=== PATIENT | female | born 1940 | race Caucasian/White ===

== ENCOUNTER 2020-07-28 18:53 | Observation (INO) | payer MEDICARE, OTHER ==
--- NOTE | 2020-07-28 19:35 | EKG REPORT ---
SEVERITY:- ABNORMAL ECG - SINUS RHYTHM LEFT VENTRICULAR HYPERTROPHY : Confirmed by: Venancio Pierce MD 28-Jul-2020 19:33:56
[2020-07-28 20:14] LABS: ABSOLUTE BASOPHILS # (AUTO) 0.1 10^3/uL (0.0-0.2); ABSOLUTE EOSINOPHILS # (AUTO) 0.1 10^3/uL (0.0-0.6); ABSOLUTE LYMPHOCYTES (AUTO) 1.5 10^3/uL (0.5-4.7); ABSOLUTE MONOCYTES (AUTO) 0.3 10^3/uL (0.1-1.4); ABSOLUTE NEUT (AUTO) 3.2 10^3/uL (1.7-8.2); EOSINOPHILS % (AUTO) 1.7 % (0-6); HEMATOCRIT 37.1 % (36.0-47.0); HEMOGLOBIN 12.3 g/dL (12.0-15.5); LYMPHOCYTES % (AUTO) 29.2 % (13-45); MEAN CORPUSCULAR HGB CONC 33.3 g/dL (32.0-36.0); MEAN CORPUSCULAR VOLUME 81 fl (80-97); MONOCYTES % (AUTO) 5.4 % (3-13); PLATELET COUNT 116 10^3/uL (150-450); RED BLOOD COUNT 4.57 10^6/uL (3.72-5.28); RED CELL DISTRIBUTION WIDTH 15.2 % (11.5-14.0); SEGMENTED NEUTROPHILS % (AUTO) 62.7 % (42-78); TOTAL CELLS COUNTED % (AUTO) 100 %; WHITE BLOOD COUNT 5.1 10^3/uL (4.0-10.5)
--- NOTE | 2020-07-28 20:17 | RADIOLOGY REPORT (SQ) ---
EXAM DESCRIPTION: XR CHEST 1 VIEW COMPLETED DATE/TME: 07/28/2020 19:54 CLINICAL HISTORY: 80 years, Female, chest pain COMPARISON: None. NUMBER OF VIEWS: 1 TECHNIQUE: Portable AP upright view of the chest was obtained at 7:50 PM. LIMITATIONS: None. FINDINGS: The heart size is within normal limits for technique. There is either focal diaphragmatic eventration or small focal diaphragmatic hernia medial left lower chest. There is no airspace consolidation. Patient is status post coronary artery bypass graft surgery. There is no evidence of pleural effusion or pneumothorax. No definite acute bony abnormality is seen. IMPRESSION: No acute abnormality as above. copyright 2010 [employer]- All Rights Reserved
[2020-07-28 20:29] LABS: ALBUMIN 4.3 g/dL (3.5-5.0); ALKALINE PHOSPHATASE 96 U/L (38-126); ANION GAP 8 (5-19); ASPARTATE AMINO TRANSFERASE 18 U/L (14-36); BILIRUBIN,DIRECT 0.1 mg/dL (0.0-0.4); BILIRUBIN,TOTAL 0.3 mg/dL (0.2-1.3); BLOOD UREA NITROGEN 18 mg/dL (7-20); CALCIUM 10.4 mg/dL (8.4-10.2); CARBON DIOXIDE 24 mmol/L (22-30); CHLORIDE 107 mmol/L (98-107); CREATINE KINASE 59 U/L (30-135); GLUCOSE 157 mg/dL (75-110); TOTAL PROTEIN 7.2 g/dL (6.3-8.2)
[2020-07-28 20:39] LABS: CREATINE KINASE MB 1.15 ng/mL (<4.55)
[2020-07-28 20:43] LABS: TROPONIN I < 0.012 ng/mL
--- NOTE | 2020-07-28 22:27 | ER Document Report ---
Entered by MARISELA HINSON SCRIBE 07/28/201951 Acting as scribe for:KRYS THURSTON, DO ED General - General Chief Complaint: Chest Pain Stated Complaint: CHEST PAIN Time Seen by Provider: 07/28/20 19:42 Primary Care Provider: MIMI SINHA MD [Primary Care Provider] - Follow up as needed Information source: Patient Notes: This 80 year old female patient presents to the emergency department today with complaints of chest pain. Patient states at 5 pm she had sudden tightness to the center of her chest that did not radiate. Patient states she was laying on her b ed when this began. Patient was administered aspirin and a nitro drip by EMS, her pain lessened, and states she feels better now. Patient reports history of open heart surgery, [place], HTN, HLD, triple by-pass, and states she cannot remember when this occurred but it has been a while. Denies recent illness, cough, or covid exposure. - Related Data Allergies/Adverse Reactions: Sulfa (Sulfonamide Antibiotics) Allergy (Verified 07/28/20 21:22) Past Medical History - General Information source: Patient - Social History Smoking Status: Unknown if Ever Smoked Lives with: Family Family History: Reviewed & Not Pertinent - Past Medical History Cardiac Medical History: Reports: Hx Heart Attack, Hx Hypercholesterolemia, Hx Hypertension Psychiatric Medical History: Reports: Hx Depression Past Surgical History: Reports: Hx Appendectomy, Hx Cholecystectomy, Hx Hysterectomy, Hx Open Heart Surgery Review of Systems - Review of Systems Constitutional: See HPI. denies: Recent illness EENT: No symptoms reported Cardiovascular: See HPI, Chest pain Respiratory: See HPI. denies: Cough Gastrointestinal: No symptoms reported Genitourinary: No symptoms reported Female Genitourinary: No symptoms reported Musculoskeletal: No symptoms reported Skin: No symptoms reported Hematologic/Lymphatic: No symptoms reported Neurological/Psychological: No symptoms reported -: Yes All other systems reviewed and negative Physical Exam - Vital signs Vitals: Temp 98.3 F 07/28/20 18:53 - General Notes: Alert. Frail and elderly appearance. - HEENT Head: Normocephalic, Atraumatic Eyes: Normal Pupils: PERRL - Respiratory Respiratory status: No respiratory distress Chest status: Nontender Breath sounds: Normal Chest palpation: Normal Notes: Midline scar to the anterior chest. - Cardiovascular Rhythm: Regular Heart sounds: Normal auscultation Murmur: No - Abdominal Inspection: Obese, Other - soft Distension: No distension Bowel sounds: Normal Tenderness: Nontender - Extremities General upper extremity: Normal inspection, Normal ROM General lower extremity: Normal inspection, Normal ROM. No: Edema - Neurological Neuro grossly intact: Yes Cognition: Normal Orientation: AAOx4 [place] Coma Scale Eye Opening: Spontaneous [place] Coma Scale Verbal: Oriented [place] Coma Scale Motor: Obeys Commands [place] Coma Scale Total: 15 Speech: Normal Motor strength normal: LUE, RUE, LLE, RLE Sensory: Normal - Psychological Associated symptoms: Normal affect, Normal mood - Skin Skin Temperature: Warm Skin Moisture: Dry Skin Color: Normal Course - Re-evaluation Re-evalutation: 07/28/20 22:15 MDM 80 year old female is a difficult historian and experienced chest pain at home earlier accompanied by accelerated htn. She is taking no medicine though she is supposed to be. She has had a CABG previously at [facility] and was taking htn medicine but not taking at this time. She was administered aspirin - 325 mg by EMS and then ntg - sublingal which helped and then a ntg gtt was initiated. She was painfree when she arrived here and sbp 140 upon arrival. Her SBP was 210 at home. She remains pain free here. I have discussed the pt with Dr. Quiroga and he has graciously agreed to see and evaluate for admission. - Vital Signs Vital signs: Temp Pulse Resp BP Pulse Ox 98.3 F 14 126/49 H 98 07/28/20 18:53 07/28/20 21:16 07/28/20 21:16 07/28/20 21:16 - Laboratory Result Diagrams: 07/28/20 18:56 07/28/20 18:56 Laboratory results interpreted by me: 07/28/20 07/28/20 18:56 18:56 RDW 15.2 H Plt Count 116 L Est GFR (MDRD) Non-Af 56 L Glucose 157 H Calcium 10.4 H Discharge - Discharge Clinical Impression: Chest pain at rest Hypertension Qualifiers: Hypertension type: unspecified Qualified Code(s): I10 - Essential (primary) hypertension Condition: Stable Disposition: ADMITTED OBSERVATION Admitting Provider: Junaid (Hospitalist) Unit Admitted: Telemetry Referrals: MIMI SINHA MD [Primary Care Provider] - Follow up as needed I personally performed the services described in the documentation, reviewed and edited the documentation which was dictated to the scribe in my presence, and it accurately records my words and actions.
[2020-07-28] MEDS ORDERED: MAG HYDROX/AL HYDROX/SIMETH SUSP 30 ML UDCUP PO PRN (22:47)
[2020-07-28] MEDS ORDERED: ONDANSETRON HCL INJ/PF 4 MG/2 ML SDV IV PRN (22:47)
[2020-07-28] MEDS ORDERED: ACETAMINOPHEN 325 MG TABLET PO PRN (22:47)
[2020-07-28] MEDS ORDERED: NITROGLYCERIN 0.4 MG/TAB 25 TAB/BOTTLE SL PRN (22:51)
[2020-07-28] MEDS ORDERED: CHLORTHALIDONE 25 MG TABLET PO SCH (23:00)
[2020-07-28] MEDS ORDERED: LOSARTAN POTASSIUM 50 MG TABLET PO ONE (23:00)
--- NOTE | 2020-07-28 23:10 | PDOC H&P ---
History of Present Illness Admission Date/PCP: 07/28/20 22:58 MIMI SINHA MD Patient complains of: Chest pain History of Present Illness: RISHI ROMO is a 80 year old female with history of hypertension, CAD S/P CABG [[facility] dementia, depression, who presents to the hospital via EMS for evaluation of acute onset chest pain. Patient's chest pain began today. She described it like a pressure and tightness. Patient herself is a poor historian. She did inform her daughter and her daughter subsequently called EMS. Patient endorsed having some shortness of breath at the time. Currently patient still notes mild heaviness in the chest but mostly resolved. Of note, patient has not been on any medications for the past several months including h er blood pressure medications. The daughter does not know what blood pressure medicationS she was previously on. On arrival of the EMS, her blood pressure was noted to be 220/76. She was given some nitro and subsequently placed on a nitro drip. On arrival at the ER, patient's nitro drip was discontinued as her blood pressure had normalized. Past Medical History Cardiac Medical History: Reports: Myocardial Infarction, Hyperlipidema, Hypertension Psychiatric Medical History: Reports: Depression Past Surgical History Past Surgical History: Reports: Appendectomy, Cholecystectomy, Hysterectomy, Orthopedic Surgery - L femor, R big toe Social History Lives with: Family Smoking Status: Unknown if Ever Smoked Electronic Cigarette use?: No Frequency of Alcohol Use: None Hx Recreational Drug Use: No - Advance Directive Resuscitation Status: Full Code Surrogate healthcare decision maker:: Amaya Family History Family History: Hypertension Parental Family History Reviewed: Yes Children Family History Reviewed: Yes Sibling(s) Family History Reviewed.: Yes Medication/Allergy Allergies/Adverse Reactions: Sulfa (Sulfonamide Antibiotics) Allergy (Verified 07/28/20 21:22) Review of Systems Constitutional: ABSENT: chills, fever(s), weakness Eyes: ABSENT: visual disturbances Nose, Mouth, and Throat: ABSENT: headache(s), sore throat Cardiovascular: PRESENT: chest pain Respiratory: ABSENT: cough Gastrointestinal: ABSENT: abdominal pain, nausea, vomiting Genitourinary: ABSENT: difficulty urinating, dysuria Musculoskeletal: ABSENT: back pain Integumentary: ABSENT: diaphoresis Neurological: ABSENT: dizziness Psychiatric: PRESENT: depression - Daughter reports history of depression. ABSENT: anxiety Endocrine: ABSENT: polyuria Hematologic/Lymphatic: ABSENT: easy bleeding Physical Exam Vital Signs: Temp Pulse Resp BP Pulse Ox 98.3 F 16 138/55 H 99 07/28/20 18:53 07/28/20 22:01 07/28/20 22:01 07/28/20 22:01 Intake & Output 07/27/20 07/28/20 07/29/20 06:59 06:59 06:59 Weight 63.6 kg General appearance: PRESENT: no acute distress, cooperative Head exam: PRESENT: normocephalic Mouth exam: ABSENT: neck supple Neck exam: ABSENT: JVD Respiratory exam: PRESENT: clear to auscultation claude, symmetrical, unlabored. ABSENT: tachypnea, wheezes Cardiovascular exam: PRESENT: diastolic murmur, RRR, +S1, +S2. ABSENT: systolic murmur, tachycardia GI/Abdominal exam: PRESENT: soft. ABSENT: rebound, rigid, tenderness Extremities exam: ABSENT: calf tenderness, pedal edema Neurological exam: PRESENT: alert, awake, oriented to person, oriented to place. ABSENT: oriented to situation Psychiatric exam: ABSENT: agitated, anxious Focused psych exam: ABSENT: pressured speech Results Laboratory Results: 07/28/20 18:56 07/28/20 18:56 07/28/20 07/28/20 18:56 18:56 WBC 5.1 RBC 4.57 Hgb 12.3 Hct 37.1 MCV 81 MCH 27.0 MCHC 33.3 RDW 15.2 H Plt Count 116 L Seg Neutrophils % 62.7 Sodium 138.9 Potassium 4.0 Chloride 107 Carbon Dioxide 24 Anion Gap 8 BUN 18 Creatinine 0.96 Est GFR ( Amer) > 60 Glucose 157 H Calcium 10.4 H Total Bilirubin 0.3 AST 18 Alkaline Phosphatase 96 Total Protein 7.2 Albumin 4.3 07/28/20 07/28/20 07/28/20 18:56 18:56 22:15 Creatine Kinase 59 CK-MB (CK-2) 1.15 Troponin I < 0.012 < 0.012 Impressions: Chest X-Ray 07/28/20 19:18 IMPRESSION: No acute abnormality as above. copyright 2010 [email or web address]- All Rights Reserved Assessment and Plan - Diagnosis (1) Hypertensive emergency Is this a current diagnosis for this admission?: Yes Plan: Secondary to noncompliance with antihypertensive regimen. Patient initially hypertensive emergency as characterized by severe hypertension with chest pain and dyspnea. Currently off the nitroglycerin drip As she has not been as any antihypertensives for several months over a year now and no one knows her prior BP meds, I will go ahead and start her on losartan and chlorthalidone right away. Admitted for observation. (2) Chest pain at rest Is this a current diagnosis for this admission?: Yes Plan: Due to malignant hypertension. Chest pain has currently resolved mostly down to 09/07. Troponin is negative x2. Monitor on telemetry Nitroglycerin as needed Optimize blood pressure. (3) CAD (coronary artery disease) Is this a current diagnosis for this admission?: Yes Plan: Has history of [place] with CABG in 2016. Not on any medications and has not seen any doctor in quite some time now. We will start her on a baby aspirin. Check lipid panel. (4) Hyperglycemia Is this a current diagnosis for this admission?: Yes Plan: Denies history of diabetes. Check hemoglobin A1c. - Time Time Spent with patient: 35 or more minutes Anticipated Discharge Disposition: Home, Self Care Anticipated Discharge Timeframe: within 24 hours
--- NOTE | 2020-07-28 23:13 | ADVANCED CARE ---
- Diagnosis (1) Hypertensive emergency Diagnosis Current: Yes (2) Chest pain at rest Diagnosis Current: Yes (3) CAD (coronary artery disease) Diagnosis Current: Yes Resuscitation Status: Full Code Discussion: I discussed with patient's daughter Amaya is patient's next of kin and lives with patient. Patient has history of dementia. Patient's daughter informs me that she would like her to be a full CODE STATUS but does not want prolonged code as she does not want her to be resuscitated as a 'vegetable'. After elaborate discussion and explanation, she did state that she does not want CPR past 8 minutes if no ROSC is achieved. Otherwise wants full treatment as deemed necessary. Time Spent: 17mins
[2020-07-29] MEDS ORDERED: CHLORTHALIDONE 25 MG TABLET PO ONE (02:20)
[2020-07-29] MEDS ORDERED: CLONIDINE HCL 0.1 MG TABLET PO ONE (02:54)
[2020-07-29 07:26] LABS: ANION GAP 9 (5-19); BLOOD UREA NITROGEN 17 mg/dL (7-20); CALCIUM 9.9 mg/dL (8.4-10.2); CARBON DIOXIDE 21 mmol/L (22-30); CHLORIDE 109 mmol/L (98-107); GLUCOSE 151 mg/dL (75-110); POTASSIUM 4.1 mmol/L (3.6-5.0); TRIGLYCERIDES 155 mg/dL (<150)
[2020-07-29 07:38] LABS: DIRECT LDL 143 mg/dL (<100)
--- NOTE | 2020-07-29 09:17 | EKG REPORT ---
SEVERITY:- ABNORMAL ECG - SINUS BRADYCARDIA LEFT VENTRICULAR HYPERTROPHY : Confirmed by: Venancio Pierce MD 29-Jul-2020 09:17:10
[2020-07-29] MEDS ORDERED: CHLORTHALIDONE 25 MG TABLET PO SCH (10:00)
[2020-07-29] MEDS: ASPIRIN 81 MG TABLET, ENT COATED PO SCH (10:54)
[2020-07-29] MEDS: ENOXAPARIN SODIUM INJ 40 MG/0.4 ML DISP.SYRIN SUBCUT SCH (10:55)
[2020-07-29] MEDS: LOSARTAN POTASSIUM 50 MG TABLET PO SCH (10:55)
[2020-07-29] MEDS: CHLORTHALIDONE 25 MG TABLET PO SCH (11:00)
--- NOTE | 2020-07-29 20:46 | RADIOLOGY REPORT (SQ) ---
EXAM DESCRIPTION: CTA CHEST CLINICAL HISTORY: 80 years Female; chest pain TECHNIQUE: CT angiogram of the chest using intravenous contrast.. MIP reconstructions were performed. All CT scans at this facility use dose modulation, iterative reconstruction, and/or weight based dosing when appropriate to reduce radiation dose to as low as reasonably achievable. COMPARISON: None. FINDINGS: Chest: Vascular: Exam is of diagnostic quality. There is no evidence of pulmonary artery embolization. Scattered vascular plaque is present in the aorta. No aneurysm. There is postoperative change of sternotomy and CABG. No dissection. Lungs: Lungs are clear. No focal consolidation. No pneumothorax or pleural effusion. In the posterior aspect of the left upper lobe along the fissure is a 4 mm pulmonary nodule. There is a smaller adjacent 2 mm nodule. A 2 mm nodules present in the right upper lobe and there are scattered very small pulmonary nodules seen throughout the lungs bilaterally. Mediastinum: Mild four-chamber cardiac enlargement. Coronary artery calcifications. No significant mediastinal or hilar lymphadenopathy. Bones and soft tissues: Compression fractures noted at T10 with 70% loss of height of the vertebral body. Age unknown. There is degenerative endplate changes with vacuum disc and sclerosis at T12-L1. The sternum is healed. Upper Abdomen: Prominence of the common bile duct is identified which measures 16 mm. The etiology is unknown. IMPRESSION: 1. No pulmonary artery embolization. 2. Multiple small bilateral pulmonary nodules which measure up to 4 mm. No follow-up is indicated. 3. No acute process in the chest. 4. Biliary dilatation of uncertain etiology.
[2020-07-29] MEDS ORDERED: ATORVASTATIN CALCIUM 40 MG TABLET PO SCH (22:00)
[2020-07-30] MEDS ORDERED: CHLORTHALIDONE 25 MG TABLET PO SCH (08:00)
[2020-07-30] MEDS: CHLORTHALIDONE 25 MG TABLET PO SCH (08:55)
[2020-07-30] MEDS: LOSARTAN POTASSIUM 50 MG TABLET PO SCH (10:14)
[2020-07-30] MEDS: ENOXAPARIN SODIUM INJ 40 MG/0.4 ML DISP.SYRIN SUBCUT SCH (10:17)
[2020-07-30] MEDS: ASPIRIN 81 MG TABLET, ENT COATED PO SCH (10:17)
[2020-07-30 11:30] VITALS: BP 125/44
--- NOTE | 2020-07-31 19:59 | PDOC PROGRESS REPORT ---
Subjective Date:: 07/29/20 Subjective:: Patient was seen and examined at bedside. minimal chest pain no SOB. BP was down to 130/80. No new complains Reason For Visit: HTN EMERGENCY,CHEST PAIN Physical Exam Vital Signs: Temp Pulse Resp BP Pulse Ox 97.8 F 62 17 125/44 L 100 07/30/20 12:33 07/30/20 12:33 07/30/20 12:33 07/30/20 12:33 07/30/20 12:33 Intake & Output 07/30/20 07/31/20 08/01/20 06:59 06:59 06:59 Intake Total 580 120 Balance 580 120 Weight 65 kg General appearance: PRESENT: no acute distress, cooperative Head exam: PRESENT: atraumatic, normocephalic Eye exam: PRESENT: EOMI, PERRLA Mouth exam: PRESENT: moist Neck exam: PRESENT: full ROM Respiratory exam: PRESENT: clear to auscultation claude, symmetrical, unlabored Cardiovascular exam: PRESENT: RRR, +S1, +S2 Pulses: PRESENT: +2 pedal pulses bilateral GI/Abdominal exam: PRESENT: normal bowel sounds, soft. ABSENT: rebound, tenderness Extremities exam: PRESENT: full ROM Musculoskeletal exam: PRESENT: full ROM Neurological exam: PRESENT: alert, awake, oriented to person, oriented to place, oriented to time, oriented to situation Psychiatric exam: PRESENT: normal mood Skin exam: PRESENT: normal color Results Laboratory Results: 07/28/20 18:56 07/29/20 06:18 07/28/20 07/28/20 07/28/20 18:56 18:56 22:15 Creatine Kinase 59 CK-MB (CK-2) 1.15 Troponin I < 0.012 < 0.012 Impressions: Chest X-Ray 07/28/20 19:18 IMPRESSION: No acute abnormality as above. copyright 2010 [employer]- All Rights Reserved Chest/Abdomen CTA 07/29/20 00:00 IMPRESSION: 1. No pulmonary artery embolization. 2. Multiple small bilateral pulmonary nodules which measure up to 4 mm. No follow-up is indicated. 3. No acute process in the chest. 4. Biliary dilatation of uncertain etiology. Assessment and Plan - Diagnosis (1) CAD (coronary artery disease) Qualifiers: Coronary Disease-Associated Artery/Lesion type: bypass graft Associated ang tamie: with stable angina Is this a current diagnosis for this admission?: Yes Plan: Has history of [place] with CABG in 2016. Not on any medications and has not seen any doctor in quite some time now. We will start her on a baby aspirin. - lipid panel with elevated LDL and total annie - started on aspirin, metoprolol and ARB (2) Chest pain at rest Is this a current diagnosis for this admission?: Yes Plan: Due to malignant hypertension. Chest pain has currently resolved mostly down to 1/5. Troponin is negative x2. Monitor on telemetry Nitroglycerin as needed Optimize blood pressure. (3) Hyperglycemia Is this a current diagnosis for this admission?: Yes Plan: Denies history of diabetes. Check hemoglobin A1c. (4) Hypertension Qualifiers: Hypertension type: unspecified Qualified Code(s): I10 - Essential (primary) hypertension Is this a current diagnosis for this admission?: Yes Plan: - was not on any meds prior to admission - started on losartan, chlorthalidone (5) Hypertensive emergency Is this a current diagnosis for this admission?: Yes Plan: Secondary to noncompliance with antihypertensive regimen. Patient initially hypertensive emergency as characterized by severe hypertension with chest pain and dyspnea. Currently off the nitroglycerin drip As she has not been as any antihypertensives for several months over a year now and no one knows her prior BP meds, I will go ahead and start her on losartan and chlorthalidone right away. - Time Time Spent with patient: 25-34 minutes Medications reviewed and adjusted accordingly: Yes Anticipated Discharge Disposition: Home, Self Care Anticipated Discharge Timeframe: within 48 hours
--- NOTE | 2020-07-31 20:01 | PDOC DISCHARGE SUMMARY ---
Impression - Admit/DC Date/PCP Admission Date/Primary Care Provider: 07/28/20 22:58 MIMI SINHA MD Discharge Date: 07/30/20 - Discharge Diagnosis (1) CAD (coronary artery disease) Is this a current diagnosis for this admission?: Yes (2) Chest pain at rest Is this a current diagnosis for this admission?: Yes (3) Hyperglycemia Is this a current diagnosis for this admission?: Yes (4) Hypertension Is this a current diagnosis for this admission?: Yes (5) Hypertensive emergency Is this a current diagnosis for this admission?: Yes - Additional Information Resuscitation Status: Full Code Discharge Diet: Cardiac Discharge Activity: Activity As Tolerated Referrals: MIMI SINHA MD [Primary Care Provider] - Follow up as needed (PATIENT WILL HAVE TO MAKE OWN APPT.) Prescriptions: Losartan Potassium [Cozaar 50 mg Tablet] 50 mg PO DAILY 60 Days #60 tablet Aspirin [Ecotrin 81 mg EC Tablet] 81 mg PO DAILY 60 Days #60 tabec Chlorthalidone [Hygroton 25 mg Tablet] 25 mg PO QAM 30 Days #30 tablet Atorvastatin Calcium [Lipitor 40 mg Tablet] 40 mg PO QHS 60 Days #60 tablet Nitroglycerin [Nitrostat 0.4 mg (1/150 Gr) Tabs 25/Bottle] 1 tab SL Q5MP PRN 30 Days #10 bottle PRN Reason: Pantoprazole Sodium [Protonix [address] Tablet] 40 mg PO NOW 30 Days #30 tablet. Home Medications: Aspirin [Ecotrin 81 mg EC Tablet] 81 mg PO DAILY 60 Days #60 tabec 07/30/20 Atorvastatin Calcium [Lipitor 40 mg Tablet] 40 mg PO QHS 60 Days #60 tablet 07/30/20 Chlorthalidone [Hygroton 25 mg Tablet] 25 mg PO QAM 30 Days #30 tablet 07/30/20 Losartan Potassium [Cozaar 50 mg Tablet] 50 mg PO DAILY 60 Days #60 tablet 07/30/20 Nitroglycerin [Nitrostat 0.4 mg (1/150 Gr) Tabs 25/Bottle] 1 tab SL Q5MP PRN 30 Days #10 bottle 07/30/20 Pantoprazole Sodium [Protonix [address] Tablet] 40 mg PO NOW 30 Days #30 tablet. 07/30/20 History of Present Illiness History of Present Illness: RISHI ROMO is a 80 year old female with history of hypertension, CAD S/P CABG [2016 [facility]], dementia, depression, who presents to the hospital via EMS for e valuation of acute onset chest pain. Patient's chest pain began today. She described it like a pressure and tightness. Patient herself is a poor historian. She did inform her daughter and her daughter subsequently called EMS. Patient endorsed having some shortness of breath at the time. Currently patient still notes mild heaviness in the chest but mostly resolved. Of note, patient has not been on any medications for the past several months including her blood pressure medications. The daughter does not know what blood pressure medicationS she was previously on. On arrival of the EMS, her blood pressure was noted to be 220/76. She was given some nitro and subsequently placed on a nitro drip. On arrival at the ER, patient's nitro drip was discontinued as her blood pressure had normalized. Hospital Course Hospital Course: On the second hospital day her blood pressure went down to 130s over 50s and her chest pain has significantly lessened. Troponin was negative x2. On the third hospital day her chest pain has completely resolved, CTA chest was done to rule out pulmonary embolism and her T CTA chest was negative with no aortic dissection as well. TSH was normal. She was discharged on blood pressure medications and aspirin and was advised to follow-up with her primary care physician. Physical Exam Vital Signs: Temp Pulse Resp BP Pulse Ox 97.8 F 62 17 125/44 L 100 07/30/20 12:33 07/30/20 12:33 07/30/20 12:33 07/30/20 12:33 07/30/20 12:33 Intake & Output 07/30/20 07/31/20 08/01/20 06:59 06:59 06:59 Intake Total 580 120 Balance 580 120 Weight 65 kg General appearance: PRESENT: no acute distress, cooperative Head exam: PRESENT: atraumatic, normocephalic Eye exam: PRESENT: EOMI, PERRLA Mouth exam: PRESENT: moist Neck exam: PRESENT: full ROM Respiratory exam: PRESENT: clear to auscultation claude, symmetrical, unlabored Cardiovascular exam: PRESENT: RRR, +S1, +S2 GI/Abdominal exam: PRESENT: normal bowel sounds, soft. ABSENT: rebound, tenderness Extremities exam: PRESENT: full ROM Musculoskeletal exam: PRESENT: full ROM Neurological exam: PRESENT: alert, awake, oriented to person, oriented to place, oriented to time, oriented to situation Psychiatric exam: PRESENT: normal mood Skin exam: PRESENT: normal color Results Laboratory Results: WBC 5.1 10^3/uL (4.0-10.5) 07/28/20 18:56 RBC 4.57 10^6/uL (3.72-5.28) 07/28/20 18:56 Hgb 12.3 g/dL (12.0-15.5) 07/28/20 18:56 Hct 37.1 % (36.0-47.0) 07/28/20 18:56 MCV 81 fl (80-97) 07/28/20 18:56 MCH 27.0 pg (27.0-33.4) 07/28/20 18:56 MCHC 33.3 g/dL (32.0-36.0) 07/28/20 18:56 RDW 15.2 % (11.5-14.0) H 07/28/20 18:56 Plt Count 116 10^3/uL (150-450) L 07/28/20 18:56 Lymph % (Auto) 29.2 % (13-45) 07/28/20 18:56 [place] % (Auto) 5.4 % (3-13) 07/28/20 18:56 Eos % (Auto) 1.7 % (0-6) 07/28/20 18:56 Baso % (Auto) 1.0 % (0-2) 07/28/20 18:56 Absolute Neuts (auto) 3.2 10^3/uL (1.7-8.2) 07/28/20 18:56 Absolute Lymphs (auto) 1.5 10^3/uL (0.5-4.7) 07/28/20 18:56 Absolute Monos (auto) 0.3 10^3/uL (0.1-1.4) 07/28/20 18:56 Absolute Eos (auto) 0.1 10^3/uL (0.0-0.6) 07/28/20 18:56 Absolute Basos (auto) 0.1 10^3/uL (0.0-0.2) 07/28/20 18:56 Seg Neutrophils % 62.7 % (42-78) 07/28/20 18:56 Sodium 138.7 mmol/L (137-145) 07/29/20 06:18 Potassium 4.1 mmol/L (3.6-5.0) 07/29/20 06:18 Chloride 109 mmol/L (98-107) H 07/29/20 06:18 Carbon Dioxide 21 mmol/L (22-30) L 07/29/20 06:18 Anion Gap 9 (5-19) 07/29/20 06:18 BUN 17 mg/dL (7-20) 07/29/20 06:18 Creatinine 0.88 mg/dL (0.52-1.25) 07/29/20 06:18 Est GFR ( Amer) > 60 (>60) 07/29/20 06:18 Est GFR (MDRD) Non-Af > 60 (>60) 07/29/20 06:18 Glucose 151 mg/dL (75-110) H 07/29/20 06:18 Hemoglobin A1c % 6.7 % (4.7-6.0) H 07/29/20 06:18 Calcium 9.9 mg/dL (8.4-10.2) 07/29/20 06:18 Total Bilirubin 0.3 mg/dL (0.2-1.3) 07/28/20 18:56 Direct Bilirubin 0.1 mg/dL (0.0-0.4) 07/28/20 18:56 Neonat Total Bilirubin Not Reportable 07/28/20 18:56 Neonat Direct Bilirubin Not Reportable 07/28/20 18:56 Neonat Indirect Bili Not Reportable 07/28/20 18:56 AST 18 U/L (14-36) 07/28/20 18:56 ALT 11 U/L (<35) 07/28/20 18:56 Alkaline Phosphatase 96 U/L (38-126) 07/28/20 18:56 Creatine Kinase 59 U/L (30-135) 07/28/20 18:56 CK-MB (CK-2) 1.15 ng/mL (<4.55) 07/28/20 18:56 Troponin I < 0.012 ng/mL 07/28/20 22:15 Total Protein 7.2 g/dL (6.3-8.2) 07/28/20 18:56 Albumin 4.3 g/dL (3.5-5.0) 07/28/20 18:56 Triglycerides 155 mg/dL (<150) H 07/29/20 06:18 Cholesterol 194.40 mg/dL (0-200) 07/29/20 06:18 LDL Cholesterol Direct 143 mg/dL (<100) H 07/29/20 06:18 VLDL Cholesterol 31.0 mg/dL (10-31) 07/29/20 06:18 HDL Cholesterol 42 mg/dL (>40) 07/29/20 06:18 TSH 6.19 uIU/mL (0.47-4.68) H 07/29/20 06:18 07/28/20 07/28/20 18:56 22:15 CK-MB (CK-2) 1.15 Troponin I < 0.012 < 0.012 Impressions: Chest X-Ray 07/28/20 19:18 IMPRESSION: No acute abnormality as above. copyright [address]- All Rights Reserved Chest/Abdomen CTA 07/29/20 00:00 IMPRESSION: 1. No pulmonary artery embolization. 2. Multiple small bilateral pulmonary nodules which measure up to 4 mm. No follow-up is indicated. 3. No acute process in the chest. 4. Biliary dilatation of uncertain etiology. Stroke Is this a Stroke Patient?: No Acute Heart Failure Is this a Heart Failure Patient?: No
== END 2020-07-30 14:03 | disposition home or self-care (01) ==
LOC: ER 18:53 → EH 22:58 → 4S 23:25
PROVIDERS: ADMIT Internal Medicine; ATTEND Internal Medicine
DX: I16.1 Hypertensive emergency (principal); R07.89 Other chest pain; I25.709 Atherosclerosis of coronary artery bypass graft(s), unspecified, with unspecified angina pectoris; F03.90 Unspecified dementia, unspecified severity, without behavioral disturbance, psychotic disturbance, mood disturbance, and anxiety; Z91.14 Patient's other noncompliance with medication regimen; R73.9 Hyperglycemia, unspecified; E66.9 Obesity, unspecified; I25.2 Old myocardial infarction; E78.5 Hyperlipidemia, unspecified; Z95.1 Presence of aortocoronary bypass graft; Z82.49 Family history of ischemic heart disease and other diseases of the circulatory system
CPT/HCPCS: 93005 ×2; 99285; 36415 ×2; 82553; 82550; 84443; 85025; 80048; 80053; 84484; 83036; 80061; 71045; 71275; 93010 ×2; G0378 ×3; A9270 ×8; J1650; J3490 ×2

== ENCOUNTER 2020-08-02 18:27 | Emergency (ER) | payer MEDICARE ==
[2020-08-02 19:06] LABS: ABSOLUTE BASOPHILS # (AUTO) 0.1 10^3/uL (0.0-0.2); ABSOLUTE EOSINOPHILS # (AUTO) 0.1 10^3/uL (0.0-0.6); ABSOLUTE LYMPHOCYTES (AUTO) 1.2 10^3/uL (0.5-4.7); ABSOLUTE MONOCYTES (AUTO) 0.4 10^3/uL (0.1-1.4); ABSOLUTE NEUT (AUTO) 8.2 10^3/uL (1.7-8.2); BASOPHILS % (AUTO) 0.6 % (0-2); EOSINOPHILS % (AUTO) 0.6 % (0-6); HEMATOCRIT 37.9 % (36.0-47.0); HEMOGLOBIN 12.7 g/dL (12.0-15.5); LYMPHOCYTES % (AUTO) 11.7 % (13-45); MEAN CORPUSCULAR HEMOGLOBIN 27.5 pg (27.0-33.4); MEAN CORPUSCULAR HGB CONC 33.5 g/dL (32.0-36.0); MEAN CORPUSCULAR VOLUME 82 fl (80-97); MONOCYTES % (AUTO) 4.1 % (3-13); PLATELET COUNT 128 10^3/uL (150-450); RED BLOOD COUNT 4.62 10^6/uL (3.72-5.28); RED CELL DISTRIBUTION WIDTH 15.3 % (11.5-14.0); TOTAL CELLS COUNTED % (AUTO) 100 %; WHITE BLOOD COUNT 9.9 10^3/uL (4.0-10.5)
--- NOTE | 2020-08-02 19:24 | RADIOLOGY REPORT (SQ) ---
EXAM DESCRIPTION: CHEST SINGLE VIEW IMAGES COMPLETED DATE/TIME: 08/02/2020 6:58 pm REASON FOR STUDY: sob COMPARISON: 07/28/2020 EXAM PARAMETERS: NUMBER OF VIEWS: One view. TECHNIQUE: Single frontal radiographic view of the chest acquired. RADIATION DOSE: NA LIMITATIONS: None. FINDINGS: LUNGS AND PLEURA: No opacities, masses or pneumothorax. No pleural effusion. MEDIASTINUM AND HILAR STRUCTURES: No masses. Contour normal. HEART AND VASCULAR STRUCTURES: Heart normal in size. Normal vasculature. BONES: No acute findings. HARDWARE: Sternotomy wires. OTHER: No other significant finding. IMPRESSION: NO ACUTE RADIOGRAPHIC FINDING IN THE CHEST. TECHNICAL DOCUMENTATION: JOB ID: [id number] 2010 [employer]- All Rights Reserved Reading location - IP/workstation name: [email or web address]
[2020-08-02 19:25] LABS: ALBUMIN 4.4 g/dL (3.5-5.0); ALKALINE PHOSPHATASE 121 U/L (38-126); ANION GAP 11 (5-19); ASPARTATE AMINO TRANSFERASE 54 U/L (14-36); BILIRUBIN,DIRECT 0.1 mg/dL (0.0-0.4); BILIRUBIN,TOTAL 0.4 mg/dL (0.2-1.3); BLOOD UREA NITROGEN 27 mg/dL (7-20); CALCIUM 10.2 mg/dL (8.4-10.2); CARBON DIOXIDE 21 mmol/L (22-30); CHLORIDE 105 mmol/L (98-107); GLUCOSE 178 mg/dL (75-110); TOTAL PROTEIN 7.2 g/dL (6.3-8.2)
--- NOTE | 2020-08-02 22:34 | ER Document Report ---
Entered by MARISELA HINSON SCRIBE 08/02/202127 Acting as scribe for:KRYS THURSTON, ED General - General Chief Complaint: Shortness Of Breath Stated Complaint: SHORTNESS OF BREATH Time Seen by Provider: 08/02/20 20:21 Primary Care Provider: MIMI SINHA MD [Primary Care Provider] - Follow up as needed Information source: Patient, Emergency Med Personnel, [facility] Records Cannot obtain history due to: Dementia Notes: This 80 year old female patient presents to the emergency department today with arrival by EMS. Patient states she cannot remember exactly why she is here but thinks her daughter called for EMS because she was having chest pain. Denies chest pain now. Patient has a history of dementia, HTN, HLD, PA, and CABG. Patient was seen in the ED x5 days ago (07/28) for chest pain and was admitted until being discharged x2 days ago (07/31). Patient's discharge diagnosis included CAD, hyperglycemia, and HTN. Patient states she does not remember being in the hospital. Per EMS, patient took 81 mg aspirin x4 prior to their arrival and EMS personnel administered 0.4 nitro spray sublingual x3 and began a nitro drip en route. - Related Data Allergies/Adverse Reactions: Sulfa (Sulfonamide Antibiotics) Allergy (Verified 08/02/20 19:03) Past Medical History - General Information source: Patient, Emergency Med Personnel, [facility] Records Cannot obtain history due to: Dementia - Social History Smoking Status: Unknown if Ever Smoked Family History: Hypertension - Past Medical History Cardiac Medical History: Reports: Hx Coronary Artery Disease, Hx Heart Attack, Hx Hypercholesterolemia, Hx Hypertension Psychiatric Medical History: Reports: Hx Depression Past Surgical History: Reports: Hx Appendectomy, Hx Cholecystectomy, Hx Coronary Artery Bypass Graft, Hx Hysterectomy, Hx Open Heart Surgery, Hx Orthopedic Surgery - L femor, R big toe Review of Systems - Review of Systems -: Yes ROS unobtainable due to patient's medical condition Physical Exam - Vital signs Vitals: Temp Resp BP Pulse Ox 98.8 F 17 143/63 H 96 08/02/20 18:35 08/02/20 18:35 08/02/20 18:35 08/02/20 18:35 - General Notes: Alert. Elderly and frail appearance. - HEENT Head: Normocephalic, Atraumatic Eyes: Normal Pupils: PERRL - Respiratory Respiratory status: No respiratory distress Chest status: Nontender Breath sounds: Normal Chest palpation: Normal - Cardiovascular Rhythm: Regular Heart sounds: Normal auscultation Murmur: No - Abdominal Inspection: Obese, Other - soft Distension: No distension Bowel sounds: Normal Tenderness: Nontender - Extremities General upper extremity: Normal inspection, Normal ROM General lower extremity: Normal inspection, Normal ROM. No: Edema - Neurological Neuro grossly intact: Yes [place] Coma Scale Eye Opening: Spontaneous [place] Coma Scale Verbal: Confused [place] Coma Scale Motor: Obeys Commands [place] Coma Scale Total: 14 Speech: Normal Sensory: Normal - Psychological Associated symptoms: Normal affect, Normal mood - Skin Skin Temperature: Warm Skin Moisture: Dry Skin Color: Normal Course - Re-evaluation Re-evalutation: 08/03/20 01:53 MDM 80 year old female who's ability to give a reasonable history is somewhat limited due her underlying dementia. She was recently admitted here () and was worked up for poorly controlled htn and chest pain. CTA was done during that stay and no evidence of aortic abnormality or pe was noted. She has no pain here and can not tell me, in fact, why she is here. She is safe for follow up. - Vital Signs Vital signs: Temp Pulse Resp BP Pulse Ox 98.8 F 14 120/57 L 97 08/02/20 18:35 08/03/20 02:01 08/03/20 02:01 08/03/20 02:01 - Laboratory Result Diagrams: 08/02/20 18:48 08/02/20 18:48 Laboratory results interpreted by me: 08/02/20 08/02/20 18:48 18:48 RDW 15.3 H Plt Count 128 L Lymph % (Auto) 11.7 L Seg Neutrophils % 83.0 H Carbon Dioxide 21 L BUN 27 H Est GFR ( Amer) 52 L Est GFR (MDRD) Non-Af 43 L Glucose 178 H AST 54 H - Diagnostic Test Radiology reviewed: Image reviewed, Reports reviewed - EKG Interpretation by Me EKG shows normal: Sinus rhythm Rate: Normal Rhythm: NSR - NSR Left axis 72 BPM Poor R wave Progression repolarization abnormality without st elevation or depression my interpretation. Discharge - Discharge Clinical Impression: Thrombocytopenia, Hyperglycemia Hypertension Qualifiers: Hypertension type: unspecified Qualified Code(s): I10 - Essential (primary) hypertension Dementia Qualifiers: Dementia type: unspecified type Condition: Stable Disposition: HOME, SELF-CARE Instructions: Dementia ([facility]), High Blood Pressure ([facility]), Thrombocytopenia ([facility]) Additional Instructions: See your doctor in follow up. Take your blood pressure medicine as directed. Please return here for any problems or any concerns including but not limited to chest pain, shortness of breath or other concerns. See your primary doctor and discuss having an ultrasound of your carotid arteries scheduled. Your platelet count was a bit low, Have that level rechecked. Your blood sugar was too high. Follow your diabetic diet. Referrals: MIMI SINHA MD [Primary Care Provider] - Follow up as needed I personally performed the services described in the documentation, reviewed and edited the documentation which was dictated to the scribe in my presence, and it accurately records my words and actions.
--- NOTE | 2020-08-03 00:01 | RADIOLOGY REPORT (SQ) ---
CT HEAD WITHOUT IV CONTRAST CLINICAL STATEMENT: dementia TECHNIQUE: Axial CT images from skull base to vertex without IV contrast. This exam was performed according to our departmental dose optimization program, and includes the following measures where applicable: automated exposure control, adjustment of the mAs and/or kVp according to patient size and/or exam, and an iterative reconstruction algorithm. COMPARISON: FINDINGS: There is no acute intracranial hemorrhage, mass, mass effect or abnormal extra-axial fluid collection. No evidence of an acute territorial infarct is identified. Patchy foci of hypoattenuation are noted in the brain parenchyma, nonspecific but compatible with moderate chronic microvascular angiopathy. The density in the larger dural venous sinuses is grossly normal. Atherosclerotic calcifications are present in the cavernous carotid artery segments bilaterally. There is proportionate enlargement of the ventricular system and cortical sulci, compatible with parenchymal volume loss. Basal ganglion calcifications are noted. There is prominence of the distal internal carotid artery on the left raising the possibility of a small aneurysm. No hemorrhage. Vascular calcifications are noted in the carotid and vertebral arteries. Calvaria: The skull base and calvaria demonstrate no abnormality. Postsurgical change in the mandible. Lucency is identified along the right wing of the prosthesis in the mandible. This may represent loosening. Paranasal sinuses: Visualized portions of the orbits and paranasal sinuses are unremarkable. skull base: Unremarkable IMPRESSION: 1. No intracranial hemorrhage or mass lesion. 2. Age-related volume loss and nonspecific white matter changes. 3. Prominence of the distal left ICA raising the possibility of subtle aneurysm. 4. Possible loosening of the mandibular prosthesis on the right.
[2020-08-03 02:08] VITALS: BP 120/57
[2020-08-03 03:00] LABS: APPEARANCE,URINE SLIGHTLY-CLOUDY; BILIRUBIN,URINE NEGATIVE (NEGATIVE); COLOR,URINE YELLOW; GLUCOSE, URINE NEGATIVE (NEGATIVE); KETONES,URINE NEGATIVE (NEGATIVE); LEUKOCYTE ESTERASE,URINE MODERATE (NEGATIVE); NITRITE,URINE NEGATIVE (NEGATIVE); PROTEIN,URINE NEGATIVE (NEGATIVE); URINE SPECIFIC GRAVITY 1.015; UROBILINOGEN,URINE NEGATIVE mg/dL (<2.0)
--- NOTE | 2020-08-03 10:00 | EKG REPORT ---
SEVERITY:- ABNORMAL ECG - SINUS RHYTHM LVH WITH SECONDARY REPOLARIZATION ABNORMALITY : Confirmed by: Alejandro Julien MD 03-Aug-2020 09:59:33
== END 2020-08-03 03:26 | disposition home or self-care (01) ==
LOC: ER 18:27
DX: D69.6 Thrombocytopenia, unspecified (principal); R73.9 Hyperglycemia, unspecified; I25.10 Atherosclerotic heart disease of native coronary artery without angina pectoris; I10 Essential (primary) hypertension; I25.2 Old myocardial infarction; F03.90 Unspecified dementia, unspecified severity, without behavioral disturbance, psychotic disturbance, mood disturbance, and anxiety; Z95.5 Presence of coronary angioplasty implant and graft; Z88.2 Allergy status to sulfonamides
CPT/HCPCS: 36415; 70450; 71045; 80053; 81001; 83735; 84484; 85025; 93005; 93010; 99285